=== PATIENT | female | born 2005 | race Caucasian/White ===

== ENCOUNTER 2024-12-27 12:53 | Emergency (ER) | payer BC ==
[~2024-12-27] VITALS: Ht 165.1 cm; Wt 52.3 kg
[2024-12-27] MEDS ORDERED: ketorolac trometh 15mg/ml vial 15 MG/ML ML IM ONE (13:25)
[2024-12-27 14:52] LABS: BASOPHILS % (AUTO) 0.2 % (0-1); EOSINOPHILS % (AUTO) 0.1 % (0-6); HEMOGLOBIN 13.9 g/dl (12.0-16.0); LYMPHOCYTES # (AUTO) 1.9 X10'3 (1.1-4.8); LYMPHOCYTES % (AUTO) 9.9 % (21-51); MEAN CORPUSCULAR HEMOGLOBIN 27.9 PG (27.0-31.0); MEAN CORPUSCULAR HGB CONC 33.2 g/dL (33.0-36.5); MEAN PLATELET VOLUME 7.4 FL (7.4-10.4); MONOCYTES # (AUTO) 0.7 X10'3 (0-0.9); MONOCYTES % (AUTO) 3.6 % (2-12); NEUTROPHILS # (AUTO) 16.6 X10'3 (1.8-7.7); NEUTROPHILS % (AUTO) 86.2 % (42-75); PLATELET COUNT 443 X10'3 (140-440); RED CELL DISTRIBUTION WIDTH 12.7 % (11.5-14.5); WHITE BLOOD COUNT 19.2 X10'3 (4.5-11.0)
[2024-12-27 15:04] LABS: ALANINE AMINOTRANSFERASE 26 U/L (12-78); ALBUMIN 4.1 G/DL (3.4-5.0); ALBUMIN/GLOBULIN RATIO 1.1 (1.1-1.5); ALKALINE PHOSPHATASE 63 IU/L (46-116); ANION GAP 7 (8-16); ASPARTATE AMINO TRANSFERASE 14 U/L (10-37); BLOOD UREA NITROGEN 16 MG/DL (7-18); BUN/CREATININE RATIO 18.2 (10.0-20.0); CALCIUM 8.7 MG/DL (8.5-10.1); CHLORIDE 103 MMOL/L (99-107); CREATININE 0.88 MG/DL (0.40-0.90); GLUCOSE 112 MG/DL (70-104); LIPASE 21 U/L (16-77); SODIUM 138 MMOL/L (135-145); eCRCL 83 ML/MIN; eGFR 81 ML/MIN
[2024-12-27] MEDS: normal saline 1000ml 1,000 ML IV ONE (15:17)
[2024-12-27] MEDS: ondansetron/PF 4mg/2ml inj IV ONE ×2 (15:17→16:49)
[2024-12-27] MEDS: ketorolac trometh 15mg/ml vial 15 MG/ML ML IV ONE (15:17)
[2024-12-27 16:27] VITALS: TEMP 98.5
[2024-12-27 16:32] LABS: BILIRUBIN,URINE NEGATIVE (Neg); CLARITY,URINE CLEAR (Clear); COLOR,URINE YELLOW (Yellow); GLUCOSE, URINE NEGATIVE (Neg); KETONES,URINE 40 mg/dl (Neg); LEUKOCYTE ESTERASE ,URINE NEGATIVE (Neg); NITRITES, URINE NEGATIVE (Neg); OCCULT BLOOD,URINE LARGE (Neg); PH,URINE 5.5 (4.8-8.0); PROTEIN,URINE TRACE mg/dl (Neg); UROBILINOGEN,URINE 0.2 E.U/dL (0.2-1.0)
[2024-12-27 16:44] LABS: UA COLLECTION TYPE CLN CATCH MIDSTREAM
[2024-12-27 16:46] LABS: BACTERIA,URINE FEW /HPF (Neg); MUCUS STRANDS NONE SEEN /LPF (Neg); SQUAMOUS EPITHELIAL CELL,UR NONE SEEN /LPF (FEW); WBC,URINE NONE SEEN /HPF (0-4)
[2024-12-27 16:47] LABS: CAL OXALATE CRYSTALS FEW /HPF (NEGATIVE)
[2024-12-27] MEDS ORDERED: FLO0.4C PO (17:44)
[2024-12-27] MEDS ORDERED: IBUP-1985 PO (17:44)
[2024-12-27] MEDS ORDERED: HYDR-3965 PO (17:44)
[2024-12-27 17:59] VITALS: BP 122/82; PULSE 73; RESP 16; O2SAT 100
== END 2024-12-27 18:10 | disposition home or self-care (01) ==
LOC: ER 12:54
DX: N20.0 Calculus of kidney (principal); M54.59 Other low back pain; Z87.442 Personal history of urinary calculi
CPT/HCPCS: 36415; 76770; 80053; 81001; 83690; 85025; 96361; 96374; 96375; 96376; 99285; J1885; J2405; J7030

== ENCOUNTER 2025-10-02 18:03 | Emergency (ER) | payer BC ==
[~2025-10-02] VITALS: Ht 165.1 cm; Wt 54.2 kg
[~2025-10-02 18:03] MED LIST: IBUP600T52 PO
[2025-10-02 18:41] VITALS: TEMP 98
--- NOTE | 2025-10-02 18:49 | ELECTROCARDIOGRAPH REPORT ---
[facility] Test Date: 2025-10-02 Test Time: 18:47:44 Pat Name: ABDULKADIR ALANIZ Department: [facility]- Patient ID: [id number] Room: Gender: F Manager Of Digital: : 2005 Requested By: ARASH SALOMON Order Number: [id number] Reading MD: Dr. James Ochoa Measurements Intervals [place] Rate: 97 P: 90 WA: 152 QRS: 92 QRSD: 80 T: 65 QT: 336 QTc: 427 Interpretive Statements Sinus rhythm Biatrial enlargement Borderline right axis deviation ST elev, probable normal early repol pattern Electronically Signed On 10-02-2025 21:29:[address] James Ochoa Please click the below link to view image of tracing.
--- NOTE | 2025-10-02 19:20 | RADIOLOGY REPORT ---
CHEST RADIOGRAPH INDICATION: CP TECHNIQUE: Single frontal view of the chest was obtained COMPARISON: None FINDINGS: Lines and Tubes: None Lungs: No focal consolidation. Pleura: No effusion. No pneumothorax. Cardiomediastinal contours: Unremarkable Bones: No acute osseous abnormality. IMPRESSION: No acute cardiopulmonary disease.
[2025-10-02 19:30] LABS: MEAN PLATELET VOLUME 7.8 FL (7.4-10.4); RED CELL DISTRIBUTION WIDTH 12.7 % (11.5-14.5)
[2025-10-02 19:37] LABS: CREATININE 0.73 MG/DL (0.40-0.90); PRO BRAIN NATRIURETIC PEPTIDE 35 PG/ML (0-125); TOTAL CARBON DIOXIDE 27.2 MMOL/L (24-32); eCRCL 103 ML/MIN; eGFR > 90 ML/MIN
--- NOTE | 2025-10-02 21:34 | Physician Documentation ---
History of Present Illness ~ Chief Complaint: Dizziness Stated Complaint: DIZZINESS Time Seen by MD: 21:33 OK to notify your PCP?: Yes Source: patient Mode of Arrival: POV Exam Limitations: no limitations HPI 20 year old female patient presents to the ED after becoming dizzy while at work. Patient states that she was putting things away on a lower shelf, when she stood up she felt lightheaded and "could feel it in my brain, and like I was about to pass out". She became hot during this time as well. Patient denies any chest pains or palpitations. Patient denies any lower extremity swelling or pain. Patient denies any other associated symptoms. Patient denies any other alleviating or exacerbating factors at this time. Medication Reconciliation Allergies: Coded Allergies: No Known Allergies (Unverified , 12/27/24) Scheduled PRN Ibuprofen (Ibuprofen), 1 TAB PO Q6H PRN for pain Past Medical History Past Medical History: No Pertinent History Past Surgical History: noncontributory Lives In: Home Occupation: employed Review of Systems All Other Systems at this time: Reviewed and Negative ROS As stated above in the HPI, otherwise all systems are reviewed and negative. Physical Exam Vital Signs: RN Vital Signs have been reviewed: Yes, Temperature: 98.0, Heart Rate: 86, Respiratory Rate: 16, BP: 114/76, Pulse Oximetry: 99, Weight: 54.200 Oxygen Flow Rate: 0 Pulse Oximetry Reflects: adequate oxygenation Physical Exam General: Patient is awake, alert, oriented x4 in no acute distress and well appearing.~ Head: Normocephalic and atraumatic. Eyes: Conjunctival normal. EOMI. PERRL. ENT: Mucous membranes moist. Neck: Supple, trachea is midline. Chest: Clear to auscultation bilaterally without rales, rhonchi, or wheezes. There is no accessory muscle use or retractions. Cardiac: RRR without murmurs, gallops, or rubs. Abd: Soft, nondistended, nontender, with normoactive bowel sounds. No guarding, rebound, or rigidity. Extremities: Normal strength. Normal range of motion. No deformities or edema. No calf tenderness. Back: No midline spinal or CVA tenderness. Skin: Warm and dry with no significant rash appreciated. Neuro: Cranial nerves II-XII grossly intact. No focal neuro deficits. Patient ambulating without difficulty. Progress Results/Orders Results/Orders Orders - GLEN CHASE MD Chest,Single View (10/02/25 18:55) Monitor (10/02/25 18:43) Saline Lock (10/02/25 18:43) Oxygen (10/02/25 18:43) Electrocardiogram (10/02/25 18:43) Completed Orders - GLEN CHASE MD Chest,Single View (10/02/25 18:55) Cbc/Diff (10/02/25 18:43) BMP (10/02/25 18:43) PBNP (10/02/25 18:43) Electrocardiogram (10/02/25 18:43) Hs Troponin I W Calculations (10/02/25 18:43) Hs Troponin I W Calculations (10/02/25 20:43) Vital Signs 10/02/25 10/02/25 10/02/25 10/02/25 18:41 21:35 21:38 22:05 Temp 98.0 Pulse 86 84 87 Resp 16 16 16 15 B/P (MAP) 114/76 137/90 (106) 118/81 Pulse Ox 99 100 97 O2 Flow Rate 0 0 Laboratory Tests Test 10/02/25 18:47 10/02/25 20:50 White Blood Count 8.7 Red Blood Count 4.92 Hemoglobin 13.8 Hematocrit 41.4 Mean Corpuscular Volume 84.0 Mean Corpuscular Hemoglobin 28.0 Mean Corpuscular Hemoglobin Concent 33.4 Red Cell Distribution Width 12.7 Platelet Count 315 Mean Platelet Volume 7.8 Neutrophils (%) (Auto) 73.8 Lymphocytes (%) (Auto) 18.1 L Monocytes (%) (Auto) 7.2 Eosinophils (%) (Auto) 0.6 Basophils (%) (Auto) 0.3 Neutrophils # (Auto) 6.4 Lymphocytes # (Auto) 1.6 Monocytes # (Auto) 0.6 Eosinophils # (Auto) 0.0 Basophils # (Auto) 0.0 CBC Comment Sodium Level 142 Potassium Level 4.0 Chloride Level 106 Carbon Dioxide Level 27.2 Anion Gap 9 Blood Urea Nitrogen 17 Creatinine 0.73 Estimated GFR/1.73 m2 > 90 BUN/Creatinine Ratio 23.3 H Glucose Level 83 Calcium Level 9.4 Troponin I High Sensitivity < 4 L < 4 L Troponin I High Sens Percent Delta Troponin I Hi Sens Absolute Change Pro-B-Type Natriuretic Peptide 35 Albumin 4.3 Chemistry Comments EKG/XRAY/CT/US/VASC/MRI EKG : Intepreting Monitor?: No Additional Comment 1846: Normal sinus rhythm, rate of 97, normal axis, no ST changes. EKG interpreted by Dr. Chase. Chest X-Ray : Interpreted By: radiologist Views: 1 VIEW Additional Comments CHEST RADIOGRAPH INDICATION: CP TECHNIQUE: Single frontal view of the chest was obtained COMPARISON: None FINDINGS: Lines and Tubes: None Lungs: No focal consolidation. Pleura: No effusion. No pneumothorax. Cardiomediastinal contours: Unremarkable Bones: No acute osseous abnormality. IMPRESSION: No acute cardiopulmonary disease. Electronically Signed by:JULIO SOW MD Date & Time: 10/02/251916 Dictated by: JULIO SOW MD Dictation date and time: 10/02/251916 Primary Care Provider: NO PRIMARY CARE PROVIDER cc: GLEN CHASE MD ~ Imaging reviewed by Dr. Chase. Medical Decision Making Additional information obtaine: N/A Findings Patient presents to the emergency room with near syncopal episode. Differentials include but are not limited to cardiac arrhythmia, vasovagal, dehydration, stroke therefore emergent labs ordered. Labs suggest mild dehydration. Given history she had likely suffered from vagal response. ER precautions reviewed that has well as the need to sit down if symptoms occur to avoid hitting her head. Cardiac workup that has reassuring and she is considered low cardiovascular risk Differential Dx:Considerations: Include: anemia, CVA, dehydration, dysrhythmia, electrolyte imbalance, encephalopathy, Guillain-[place], hypoglycemia, hypotension, hypovolemia, labyrinthitis, Meniere's disease, myasathenia gravis, myocardial infarction, pulmonary embolus, renal failure, respiratory failure, TIA, VBI, vertigo central, vertigo peripheral, vestibular neuronitis, other Departure Time of Disposition: 21:40 Disposition: 01 HOME / SELF CARE / HOMELESS Impression: Primary Impression: Vaso vagal episode Condition: Stable Discharge Instructions: General Discharge Instructions Additional Instructions: Maintain adequate levels of hydration. Follow up with PCP for further evaluation and care. Return to ED with any new or worsening symptoms. Referrals: NO PRIMARY CARE PROVIDER (PCP) Education Educated: Patient Educated regarding: diagnosis, treatment, need for follow up Signature Scribe Signature: Scribed for Glen Chase MD by Faustina Low . 10/02/25 21:41 Attestation: The note accurately reflects work and decisions made by me.Glen Chase MD 10/03/25 03:58 GLEN CHASE MD Oct 02, 2025 21:34 FAUSTINA LEMUS Oct 02, 2025 21:41
[2025-10-02 22:05] VITALS: BP 118/81; PULSE 87; RESP 15; O2SAT 97
== END 2025-10-02 22:07 | disposition home or self-care (01) ==
LOC: ER 18:04
DX: R55 Syncope and collapse (principal)
CPT/HCPCS: 36415; 71045; 80048; 83880; 84484; 85025; 93005; 99285